=== PATIENT | female | born 1995 | race Caucasian/White ===

== ENCOUNTER 2017-06-30 00:28 | Inpatient (IN) | payer OTHER ==
[2017-06-30] MEDS ORDERED: DEXTROSE 5%-LACTATED RINGERS 1,000 ML IV SCH (01:15)
[2017-06-30] MEDS ORDERED: PROMETHAZINE HCL 25 MG/1 ML VIAL ONE (01:17)
[2017-06-30] MEDS ORDERED: BUTORPHANOL TARTRATE 1 MG/ML VIAL ONE ×2 (01:17)
[2017-06-30] MEDS ORDERED: PROMETHAZINE HCL 25 MG/1 ML VIAL IVPB ONE (01:20)
[2017-06-30] MEDS ORDERED: BUTORPHANOL TARTRATE 1 MG/ML VIAL IVPB ONE (01:20)
[2017-06-30] MEDS: ELECTROLYTE-148 SOLN 1,000 ML IV SCH ×2 (01:30→05:30)
[2017-06-30 01:39] VITALS: BMI 34.3
[2017-06-30 01:39] LABS: BASO % 0.3 % (0-2.0); EOS % 0.6 % (0-4.5); HEMATOCRIT 35.6 % (32.4-45.2); HEMOGLOBIN 11.8 GM/dL (10.7-15.3); LYMPH % 17.2 % (8-40); MCHC 33.2 g/dl (32.0-36.0); MEAN CELL VOLUME 90.2 fl (80-96); MEAN PLT VOLUME 10.2 fl (7.5-11.1); MONO % 11.3 % (3.8-10.2); NEUT % 70.6 % (42.8-82.8); PLATELET COUNT 174 K/MM3 (134-434); RBC 3.94 M/mm3 (3.60-5.2); RDW 13.4 % (11.6-15.6)
[2017-06-30 01:54] LABS: INR 0.94 (0.82-1.09); PROTHROMBIN TIME (PATIENT) 10.6 SEC (9.98-11.88)
[2017-06-30 02:04] LABS: ANION GAP 14 (8-16); BLOOD UREA NITROGEN 6 mg/dL (7-18); CALCIUM 9.2 mg/dL (8.5-10.1); CHLORIDE 105 mmol/L (98-107); CO2 21 mmol/L (21-32); CREATININE 0.6 mg/dL (0.55-1.02); GLUCOSE,RANDOM 87 mg/dL (74-106); POTASSIUM 3.7 mmol/L (3.5-5.1); SODIUM 140 mmol/L (136-145)
--- NOTE | 2017-06-30 02:05 | HP ---
Past Medical History - Admission History of Present Illness: 22 yo @ 38 4/7 wks by LMP consistent with first trimester ultrasound, EDC 07/10/2017 complicated by: 1. 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 41 lb weight gain 5. Anemia - on iron supplement 6. hx/o chlamydia 7. Transfer of care at 23 weeks Patient reports irregular contractions which increased in intensity and frequency at 2200 06/29/16. She reports leakage of clear fluid en route to the hospital. She denies vaginal bleeding and endorses movement. History Source: Patient Limitations to Obtaining History: No Limitations - Past Medical History Cardiovascular: No: HTN Pulmonary: No: Asthma Gastrointestinal: No: GERD ...: 2 ...Para: 0 ...Term: 0 ...: 0 ...Spon : 0 ...Induced : 1 ...Multiple Gestation: 0 ...LMP: 10/03/16 ... Weeks Gestation by Dates: 38.4 ...EDC by Dates: 07/10/17 ...EDC by Sono: 07/10/17 Heme/Onc: Yes: Anemia - Past Surgical History Past Surgical History: Yes: None Hx Myomectomy: No Hx Transabdominal Cerclage: No - Smoking History Have you smoked in the past 12 months: No - Alcohol/Substance Use Hx Alcohol Use: No History of Substance Use: reports: None - Social History Usual Living Arrangement: Yes: Alone History of Recent Travel: No Home Medications - Allergies Allergies/Adverse Reactions: Allergies Allergy/AdvReac Type Severity Reaction Status Date / Time No Known Allergies Allergy Verified 06/30/17 01:46 Family Disease History - Family Disease History Family History: Denies Review of Systems - Review of Systems Constitutional: reports: No Symptoms HENT: reports: No Symptoms Neck: reports: No Symptoms Cardiovascular: reports: No Symptoms Respiratory: reports: No Symptoms Genitourinary: reports: No Symptoms Breasts: reports: No Symptoms Reported Musculoskeletal: reports: No Symptoms Integumentary: reports: No Symptoms Neurological: reports: No Symptoms Endocrine: reports: No Symptoms Hematology/Lymphatic: reports: No Symptoms Psychiatric: reports: No Symptoms Physical Exam - Maternity Vital Signs: Vital Signs Temperature 97.7 F 06/30/17 01:08 Pulse Rate 80 06/30/17 01:08 Respiratory Rate 20 06/30/17 01:08 Blood Pressure 144/71 06/30/17 01:08 O2 Sat by Pulse Oximetry (%) Constitutional: Yes: Well Nourished, No Distress, Calm Cardiovascular: Yes: Regular Rate and Rhythm Lungs: Clear to auscultation - Abdominal Exam/OB Number of Fetuses: Single Presentation: Vertex Contractions: Yes Regularity: Regular Intensity: Moderate Monitor Mode: External Category: I Accelerations: Non-Uniform Decelerations: None - Vaginal Exam/OB Vaginal Bleediing: No - Physical Exam Psychiatric: Yes: Alert, Oriented - Labs Lab Results: CBC, BMP 06/30/17 01:30 PNL: O positive, antibody negative; RPR NR; HBS Ag negative; GBS negative HIV negative; GC/CT negative Hemorrhage Risk Assessment - Risk Factors Medium Risk Factors: Yes: None High Risk Factors: Yes: None Risk Score: 1 Risk Level: Medium Risk Assessment/Plan 22 yo @ 38 wks, active labor 1. Admit to L&D 2. Consents reviewed and signed 3. GBS negative 4. Will offer IV medication for now, will offer epidural upon request 5. Will proceed with expectant management
--- NOTE | 2017-06-30 02:23 | PN ---
Ante-Partal Exam - Subjective Subjective: Patient comfortable s/p stadol Vital Signs: Vital Signs Temperature 97.8 F 06/30/17 02:00 Pulse Rate 96 H 06/30/17 02:00 Respiratory Rate 20 06/30/17 02:00 Blood Pressure 129/72 06/30/17 02:00 O2 Sat by Pulse Oximetry (%) Bleeding: No Headache: No Visual changes: No - Contractions Contractions: Yes Regularity: Regular Intensity: Moderate Monitor Mode: External - Exam during Labor Heart Rate: 120 Variability: Moderate Category: I Monitor Accelerations: Present Monitor Decelerations: None Exam: Vaginal Dilatation (cm): 6 Effacement (%): 90 Amniotic Membrane Status: Ruptured Nitrazine Test: Negative Amniotic Fluid: Clear Presentation: Vertex Station: -1 - Intrapartum Hemorrhage Risk Medium Risk Factors: None High Risk Factors: None Risk Score: 0 Risk Level: Low Risk - Assessment/Plan Assessment/Plan: 22 yo active labor 1. stable exam 2. will offer epidural for pain control 3. GBS negative 4. Will proceed with expectant management
[2017-06-30] MEDS ORDERED: FENTANYL/BUPIVACAINE/NS/PF - PCEA - 50 ML DISP.SYRIN EP ONE (04:43)
[2017-06-30] MEDS ORDERED: OXYTOCIN 20 UNITS in 0.9% NS 20 UNIT/1,000 ML INFUS.BAG IV ONE (04:49)
[2017-06-30] MEDS ORDERED: NALOXONE HCL 0.4 MG/ML VIAL IVPUSH PRN (05:30)
[2017-06-30] MEDS ORDERED: FENTANYL/BUPIVACAINE/NS/PF - PCEA - 50 ML DISP.SYRIN EP SCH (05:30)
[2017-06-30] MEDS ORDERED: OXYTOCIN 15 UNITS/ LR 250 ML 15 UNIT/250 ML INFUS.BAG IVPB ONE (08:14)
[2017-06-30] MEDS ORDERED: BENZOCAINE 28 GM HEMORRHOIDAL OINTMENT TP PRN (09:19)
[2017-06-30] MEDS ORDERED: BISACODYL 10 MG SUPP.RECT RC PRN (09:19)
[2017-06-30] MEDS ORDERED: ACETAMINOPHEN 325 MG TABLET (FP) PO PRN (09:19)
[2017-06-30] MEDS ORDERED: BENZOCAINE 20% 57 GM BOTTLE TP PRN (09:19)
[2017-06-30] MEDS ORDERED: oxyCODONE HCL 5 MG TABLET PO PRN (09:19)
[2017-06-30] MEDS ORDERED: METHYLERGONOVINE MALEATE 0.2 MG/1 ML AMP IM PRN (09:19)
[2017-06-30] MEDS ORDERED: WITCH HAZEL 50% (TUCKS) 40 PAD/JAR PAD TP PRN (09:19)
[2017-06-30] MEDS ORDERED: IBUPROFEN 600 MG TABLET (FP) PO PRN (09:19)
--- NOTE | 2017-06-30 09:22 | PN ---
Delivery - Delivery Vaginal Delivery: No Problems Type of Anesthesia: Epidural Episiotomy/Laceration: Midline, 1st degree EBL (cc): 300 Delivery, Single - Stages of Labor Date 1st Stage Initiatied: 06/29/17 Time 1st Stage Initiated: 22:00 Date 2nd Stage Initiated: 06/30/17 Time 2nd Stage Initiated: 08:30 Date of Delivery: 06/30/17 Time of Delivery: 09:04 Date Placenta Delivered: 06/30/17 Time Placenta Delivered: 09:14 Placenta: Yes: Spontaneous - Condition of Infant Infant Gender: Female Position: Left, OA - 1 Minute Total Score: 9 5 Minutes Total Score: 9 - Feeding Plan Initial Plan: Elected not to breastfeed exclusively throughout hospitalization Remarks - Remarks Remarks: Patient progressed to fully dilated and at 0904 via delivered a viable female in RAYMUNDO position, APGARs 9,9. Weight and length unknown at this time. Head delivered spontaneously followed by shoulders in transverse position and body without difficulty. Infant with spontaneous cry and placed on mother's abdomen. Nose and mouth was bulb suctioned. Cord was clamped and cut. Perineum and vagina examined, a first degree laceration was noted and repaired in the usual fashion. Placenta was delivered spontaneously and intact. 20 units of pitocin in 1 L IVF was given. All counts correct x 2. Mother and infant stable in LDR. EBL 300cc.
[2017-06-30] MEDS ORDERED: OXYTOCIN 20 UNITS in 0.9% NS 1,000 UNIT/50,000 ML INFUS.BAG IV SCH (09:30)
[2017-07-01 06:36] LABS: HBsAG SCREEN Negative (Negative)
--- NOTE | 2017-07-01 08:00 | PN ---
Post Progress Note - Subjective Subjective: Patient without acute complaints. Reports tolerating oral intake without nausea or vomiting. Ambulating without dizziness. Denies fevers or chills. Pain well controlled with oral pain medication. without difficulty. Passing flatus. Post Day: 1 Type of Delivery: Vital Signs: Vital Signs Temperature 97.9 F 07/01/17 06:00 Pulse Rate 84 07/01/17 06:00 Respiratory Rate 20 07/01/17 06:00 Blood Pressure 136/85 07/01/17 06:00 O2 Sat by Pulse Oximetry (%) 98 06/30/17 07:30 Breast Exam: Yes: Soft Uterus: Yes: Fundus Firm, Fundus below umbilicus Abdomen/GI: Yes: Abdomen soft, Passing flatus, Tolerating PO. No: Abdominal Distention, Tender Lochia: Yes: Serosa Lochia, amount: Small Extremities: Yes: Calves non-tender, Edema (trace) Activity: Ambulating - Labs Labs: CBC WBC 11.0 K/mm3 (4.0-10.0) H 06/30/17 01:30 RBC 3.94 M/mm3 (3.60-5.2) 06/30/17 01:30 Hgb 11.8 GM/dL (10.7-15.3) 06/30/17 01:30 Hct 35.6 % (32.4-45.2) 06/30/17 01:30 MCV 90.2 fl (80-96) 06/30/17 01:30 MCH 30.0 pg (25.7-33.7) 06/30/17 01:30 MCHC 33.2 g/dl (32.0-36.0) 06/30/17 01:30 RDW 13.4 % (11.6-15.6) 06/30/17 01:30 Plt Count 174 K/MM3 (134-434) 06/30/17 01:30 MPV 10.2 fl (7.5-11.1) 06/30/17 01:30 Neutrophils % 70.6 % (42.8-82.8) 06/30/17 01:30 Lymphocytes % 17.2 % (8-40) 06/30/17 01:30 Monocytes % 11.3 % (3.8-10.2) H 06/30/17 01:30 Eosinophils % 0.6 % (0-4.5) 06/30/17 01:30 Basophils % 0.3 % (0-2.0) 06/30/17 01:30 Assessment/Plan 22 yo PPD # 1 s/p , afebrile, vital signs stable, doing well 1. Continue routine care. 2. Follow AM CBC with mild anemia 3. Rh positive status, no rhogam indicated. 4. Continue oral pain medication 5. Anticipate discharge home day #2
[2017-07-01 08:09] LABS: BASO % 0.2 % (0-2.0); EOS % 0.7 % (0-4.5); HEMATOCRIT 30.7 % (32.4-45.2); HEMOGLOBIN 9.9 GM/dL (10.7-15.3); LYMPH % 18.3 % (8-40); MCH 29.2 pg (25.7-33.7); MCHC 32.3 g/dl (32.0-36.0); MEAN CELL VOLUME 90.5 fl (80-96); MEAN PLT VOLUME 9.6 fl (7.5-11.1); MONO % 9.5 % (3.8-10.2); NEUT % 71.3 % (42.8-82.8); PLATELET COUNT 136 K/MM3 (134-434); RBC 3.39 M/mm3 (3.60-5.2); RDW 13.4 % (11.6-15.6); WHITE BLOOD COUNT 11.8 K/mm3 (4.0-10.0)
[2017-07-01] MEDS ORDERED: SENNOSIDES/DOCUSATE COMBO (SENNA PLUS) TABLET (UD) PO PRN (22:00)
[2017-07-02 08:08] VITALS: BP 132/82; PULSE 81; TEMP 98
--- NOTE | 2017-07-02 11:04 | PN ---
Post Progress Note - Subjective Subjective: Patient without acute complaints. Reports tolerating oral intake without nausea or vomiting. Ambulating without dizziness. Denies fevers or chills. Pain well controlled with oral pain medication. without difficulty. Passing flatus. Post Day: 2 Type of Delivery: Vital Signs: Vital Signs Temperature 98 F 07/02/17 08:05 Pulse Rate 81 07/02/17 08:05 Respiratory Rate 20 07/02/17 08:05 Blood Pressure 132/82 07/02/17 08:05 O2 Sat by Pulse Oximetry (%) 98 06/30/17 07:30 Breast Exam: Yes: Soft. No: Cracked Nipples Uterus: Yes: Fundus Firm, Fundus below umbilicus Abdomen/GI: Yes: Abdomen soft, Passing flatus, Tolerating PO. No: Abdominal Distention, Tender Lochia: Yes: Serosa Lochia, amount: Small Extremities: Yes: Calves non-tender, Edema (trace) Perineum: Yes: Laceration Activity: Ambulating - Labs Labs: CBC WBC 11.8 K/mm3 (4.0-10.0) H 07/01/17 06:30 RBC 3.39 M/mm3 (3.60-5.2) L 07/01/17 06:30 Hgb 9.9 GM/dL (10.7-15.3) L D 07/01/17 06:30 Hct 30.7 % (32.4-45.2) L 07/01/17 06:30 MCV 90.5 fl (80-96) 07/01/17 06:30 MCH 29.2 pg (25.7-33.7) 07/01/17 06:30 MCHC 32.3 g/dl (32.0-36.0) 07/01/17 06:30 RDW 13.4 % (11.6-15.6) 07/01/17 06:30 Plt Count 136 K/MM3 (134-434) D 07/01/17 06:30 MPV 9.6 fl (7.5-11.1) 07/01/17 06:30 Neutrophils % 71.3 % (42.8-82.8) 07/01/17 06:30 Lymphocytes % 18.3 % (8-40) 07/01/17 06:30 Monocytes % 9.5 % (3.8-10.2) 07/01/17 06:30 Eosinophils % 0.7 % (0-4.5) 07/01/17 06:30 Basophils % 0.2 % (0-2.0) 07/01/17 06:30 Assessment/Plan 22 yo PPD #2 s/p , afebrile, vital signs stable, doing well 1. Patient stable for discharge home today. 2. Patient encouraged to contact MD for: - Severe pain not controlled by oral pain medication - Fevers or chills - Nausea or vomiting, intolerance of oral intake 3. Patient to follow up in office in 4-6 weeks for visit
[2017-07-03 08:57] LABS: RUBELLA ANTIBODY,IGM <20.0 AU/mL (0.0-19.9)
== END 2017-07-02 15:00 | disposition home or self-care (01) | DRG 560 ==
LOC: JLDR 00:28 → J3W 10:45
PROVIDERS: ADMIT Obstetrics & Gynecology; ATTEND Obstetrics & Gynecology
PROC: 10E0XZZ Delivery of Products of Conception, External Approach (ICD-10-PCS; principal; 2017-06-30)
PROC: 0HQ9XZZ Repair Perineum Skin, External Approach (ICD-10-PCS; 2017-06-30)
DX: O26.893 Other specified pregnancy related conditions, third trimester (principal); O70.0 First degree perineal laceration during delivery; O99.02 Anemia complicating childbirth; D64.9 Anemia, unspecified; A63.0 Anogenital (venereal) warts; O98.52 Other viral diseases complicating childbirth; B02.9 Zoster without complications; Z3A.38 38 weeks gestation of pregnancy; Z37.0 Single live birth
CPT/HCPCS: 36415; 59409; 80048; 85025; 85610; 85730; 86593; 86762; 86850; 86900; 86901; 87340

== ENCOUNTER 2018-04-05 16:45 | Emergency (ER) | payer OTHER ==
[2018-04-05] MEDS ORDERED: TETRACAINE 0.5% HCL 0.6ML DROPPER.BOTTLE OD ONE (16:47)
[2018-04-05] MEDS ORDERED: FLUORESCEIN NA 1 EA STRIP ONE (16:48)
[2018-04-05] MEDS ORDERED: FLUORESCEIN NA 1 EA STRIP OU ONE (16:50)
[2018-04-05] MEDS ORDERED: SODIUM CHLORIDE 1,000 ML IV STA ×2 (17:08→17:09)
--- NOTE | 2018-04-05 17:11 | PDOC ---
History of Present Illness - General Chief Complaint: Eye Problem Stated Complaint: RT EYE IRRITATION Time Seen by Provider: 04/05/18 16:47 History Source: Patient Exam Limitations: No Limitations - History of Present Illness Initial Comments: 04/05/18 16:53 23 year old female with no past medical history p/w R eye pain. The patient had used the clear lens contact solution (hydrogen peroxide) and placed her contact lens in it. However, she didn't use the associated case with the solution. She put the contact lenses in her right eye and felt an immediate burn. Since then, she's been having pain but no changes in the visual acuity. She took out the contact lenses, flushed her eye, and went to an urgent care, where they sent her to the ER. Past History - Past Medical History Allergies/Adverse Reactions: Allergies Allergy/AdvReac Type Severity Reaction Status Date / Time No Known Allergies Allergy Verified 04/05/18 16:45 Home Medications: Ambulatory Orders NK [No Known Home Medication] 04/05/18 Asthma: No Cancer: No Cardiac Disorders: No Diabetes: No HTN: No Seizures: No Thyroid Disease: No - Suicide/Smoking/Psychosocial Hx Have you smoked in the past 12 months: No Hx Alcohol Use: No Drug/Substance Use Hx: No Hx Substance Use Treatment: No Review of Systems - Review of Systems Able to Perform ROS?: Yes Comments:: 04/05/18 17:12 GENERAL/CONSTITUTIONAL: [No fever or chills. No weakness. No weight change.] HEAD, EYES, EARS, NOSE AND THROAT: [No change in vision. No ear pain or discharge. No sore throat.] + right eye pain. CARDIOVASCULAR: [No chest pain or shortness of breath.] RESPIRATORY: [No cough, wheezing, or hemoptysis.] GASTROINTESTINAL: [No nausea, vomiting, diarrhea or constipation. No rectal bleeding.] GENITOURINARY: [No dysuria, frequency, or change in urination.] MUSCULOSKELETAL: [No joint or muscle swelling or pain. No neck or back pain.] SKIN AND BREASTS: [No rash or easy bruising.] NEUROLOGIC: [No headache, vertigo, loss of consciousness, or loss of sensation.] PSYCHIATRIC: [No depression or anxiety.] ENDOCRINE: [No increased thirst. No abnormal weight change.] HEMATOLOGIC/LYMPHATIC: [No anemia, easy bleeding, or history of blood clots.] ALLERGIC/IMMUNOLOGIC: [No hives or skin allergy. No latex allergy.] *Physical Exam - Physical Exam Comments: 04/05/18 17:12 GENERAL: Awake, alert, and fully oriented, in no acute distress HEAD: No signs of trauma EYES: PERRLA, EOMI. OD: Injected. No drainage or purulence. EOMI. 20/30 with glasses. Fluorscein stain pickup negative. OS: Clear. No drainage or purulence. EOMI. 20/25 with glasses. Fluorscein stain pickup negative. ENT: Auricles normal inspection, hearing grossly normal, nares patent NECK: Normal ROM, supple NEUROLOGICAL: Cranial nerves II through XII grossly intact. Normal speech, normal gait SKIN: Warm, Dry, normal turgor, no rashes or lesions noted. Medical Decision Making - Medical Decision Making 04/05/18 17:13 Vital Signs Temp Pulse Resp BP Pulse Ox 98.3 F 71 18 121/69 99 04/05/18 16:45 04/05/18 16:45 04/05/18 16:45 04/05/18 16:45 04/05/18 16:45 Patient with chemical burn from hydrogen peroxide commerical contact lens " Clear Care" solution. At this point, no ulcers or abrasions appreciated. VA preserved. Tetracaine drops placed OD and wendy lens applied. 2L of NS. Reassess. 04/05/18 18:04 Pt reports feeling much better. Will d/c patient and have her follow up with the eye doctor. *DC/Admit/Observation/Transfer Diagnosis at time of Disposition: Eye irritation - Discharge Dispostion Disposition: HOME Condition at time of disposition: Improved Decision to Admit order: No - Referrals - Patient Instructions Printed Discharge Instructions: DI for Chemical Eye Burn Additional Instructions: You have received a large irrigation of your eye. Your stain of the eye shows no abrasions or ulcers. You have received 2 liters of normal saline flush of your eye. Please take 600 mg ibuprofen every 6 hours as needed for pain. Follow up with your eye doctor. - Post Discharge Activity
[2018-04-05] MEDS ORDERED: ACETAMINOPHEN 500 MG TABLET (FP) PO ONE (17:42)
[2018-04-05] MEDS ORDERED: ACETAMINOPHEN 500 MG TABLET (FP) ONE (17:46)
[2018-04-05 18:04] VITALS: BP 121/69; PULSE 71; TEMP 98.3; BMI 29.7
== END 2018-04-05 18:10 | disposition home or self-care (01) ==
LOC: FER 16:45
PROC: 3E0337Z Introduction of Electrolytic and Water Balance Substance into Peripheral Vein, Percutaneous Approach (ICD-10-PCS; principal; 2018-04-05)
DX: H57.89 Other specified disorders of eye and adnexa (principal)
CPT/HCPCS: 99283-25; J7030